=== PATIENT | female | born 1965 | race Caucasian/White ===

== ENCOUNTER → 2021-09-30 12:44 | Outpatient (CLI) | payer MEDICARE, MEDICAID, SELFPAY ==
--- NOTE | 2021-09-30 | MR_ITS ---
FINAL REPORT CLINICAL HISTORY: MULTIPLE SCLEROSIS follow-up 11ml prohance FINDINGS: Multi planar MR imaging was obtained of the cervical spine with and without contrast. There is anterior and interbody fusion bridging C6-7. Magnetic susceptibility artifact is seen associated with fusion hardware. The vertebrae are of normal height. There is no malalignment. The cervical cord demonstrates normal signal and configuration. C2-C3: There is no evidence of significant disc bulge or protrusion. There is no significant facet hypertrophy. C3-C4: There is no evidence of significant disc bulge or protrusion. There is no significant facet hypertrophy. C4-C5: Mild broad-based left paracentral disc protrusion is present with mild to moderate compromise on the spinal canal. C5-C6: Moderate diffuse disc bulge and endplate hypertrophy are present. There is moderate bilateral neural foraminal narrowing. C6-C7: There is no evidence of significant disc bulge or protrusion. There is no significant facet hypertrophy. C7-T1: There is no evidence of significant disc bulge or protrusion. There is no significant facet hypertrophy. There is no abnormal contrast enhancement. IMPRESSION: Broad-based left paracentral disc protrusion at C4-5 with mild to moderate spinal canal compromise. No evidence of abnormal contrast enhancement. Reviewed, Interpreted and Dictated by Charles Elizondo MD Transcribed by Britt Norris Authenticated by Charles Elizondo MD on 09/30/2021 04:23:25 PM [facility]
--- NOTE | 2021-09-30 | MR_ITS ---
FINAL REPORT CLINICAL HISTORY: MULTIPLE SCLEROSIS follow-up 11ml prohance FINDINGS: Multiplanar MR imaging of the brain was performed without and with contrast. There is moderate atrophy. There is no evidence of intracranial hemorrhage or mass. There is extensive abnormal signal in the periventricular white matter. Signal abnormality is confluent, probably related to patient's history of demyelinating disorder. no abnormal extra-axial fluid collection is seen. The ventricular size is within normal limits. There is no evidence of shift of the midline structures. The posterior fossa and brainstem have an unremarkable appearance. No area of abnormal restricted diffusion is identified. No abnormal contrast enhancement is seen. There is extensive abnormal signal in the maxillary sinuses and ethmoid air cells bilaterally consistent with extensive chronic maxillary sinusitis. IMPRESSION: Extensive abnormal signal in the deep white matter, probably related to patient's history of demyelinating disorder. Chronic maxillary sinusitis. Reviewed, Interpreted and Dictated by Charles Elizondo MD Transcribed by Britt Norris Authenticated by Charles Elizondo MD on 09/30/2021 04:23:33 PM [facility]
== END ==
PROVIDERS: PCP Family Medicine; Visit Provider Psychiatry & Neurology Neurology
DX: G35 Multiple sclerosis (principal)
CPT/HCPCS: 70553; 72156; 76376; A9576